=== PATIENT | male | born 1950 | race Caucasian/White ===

== ENCOUNTER 2022-05-17 13:15 | Outpatient (CLI) | payer MEDICARE, MEDICAID, SELFPAY ==
--- NOTE | ~2022-05-17 | XR_ITS ---
XR hip BI wo pelvis DATE: 05/17/2022 14:25 INDICATION: Bilateral hip pain TECHNIQUE: AP and lateral views of each hip COMPARISON: None FINDINGS: There is chronic deformity at the lesser trochanter of the right femur, very possibly relat ed to old fracture. No fracture or dislocation, avascular necrosis or bone destruction of either hip is evident. Hip join t spaces are symmetric and relatively preserved. The pubic symphysis and included portions of sacroil iac joints are intact IMPRESSION: No recent fracture or dislocation or bone destruction Reviewed, dictated and finalized at location A. LE CUTTER
--- NOTE | ~2022-05-17 | XR_ITS ---
XR chest 2V 05/17/2022 14:25 Indication: COPD. Procedure: PA and lateral views of the chest Comparison: No prior studies for comparison. Findings: Heart size normal. There is ectasia of the thoracic aorta. No focal air space disease, pulm onary edema, pleural effusion or suspected pneumothorax. No acute osseous abnormality. Impression: 1: No acute cardiopulmonary disease. Reviewed, dictated and finalized at location B. K RECEIVER Impression: 1: No acute cardiopulmonary disease.
--- NOTE | ~2022-05-17 | XR_ITS ---
XR lumbar spine 2-3V DATE: 05/17/2022 14:25 INDICATION: Bilateral hip pain TECHNIQUE: AP, lateral, coned lateral lumbosacral views COMPARISON: None FINDINGS: There is osteopenia. Mild dextroscoliosis of the thoracolumbar spine. There is severe degenerative changes apophyseal joints, with grade 1 anterolisthesis at L4-5 and appa rently L5-S1 as well. There is mild loss of height and anterior wedging of L2, likely due to old compression fracture. Moderately prominent degenerative disc disease at L1-2. Severe degenerative disc disease at L5-S1. Th ere is mild degenerative disc disease at the remaining lumbar interspaces. Lower thoracic and lumbar pedicles appear intact. The sacroiliac joints are intact. IMPRESSION: Multilevel degenerative disc disease, most severe at L5-S1 Prominent degenerative changes apophyseal joints with associated grade 1 anterolisthesis at L4-5 and L5-S1 Probable chronic mild anterior wedge compression fracture deformity of L2 Reviewed, dictated and finalized at location A. ING MANAGER IMPRESSION: Multilevel degenerative disc disease, most severe at L5-S1 Prominent degenerative changes apophyseal joints with associated grade 1 sophie listhesis at L4-5 and L5-S1 Probable chronic mild anterior wedge compression fracture deformity of L2
[2022-05-17 13:34] LABS: Basophils Absolute Auto 0.04 K/mm3 (0.00-0.10); Basophils Percent Auto 0.6 % (0.0-1.0); Eosinophils Percent Auto 1.4 % (1.0-6.0); Hematocrit 39.8 % (37.0-46.0); Hemoglobin 12.9 g/dL (12.4-15.3); Immature Granulocyte Absolute 0.02 K/mm3 (0.00-0.00); Immature Granulocyte Percent A 0.3 % (0.0-0.0); Lymphocytes Absolute Auto 1.75 K/mm3 (1.10-4.50); Lymphocytes Percent Auto 24.3 % (18.0-42.0); Mean Corpuscular HGB Conc 32.4 g/dL (32.0-36.0); Mean Corpuscular Hemoglobin 28.2 pg (27.0-31.0); Mean Corpuscular Volume 87.1 fL (78.0-102.0); Mean Platelet Volume 9.3 fl (8.7-11.0); Monocytes Absolute Auto 0.54 K/mm3 (0.10-0.90); Monocytes Percent Auto 7.5 % (2.0-11.0); Neutrophils Absolute Auto 4.8 K/mm3 (1.7-7.2); Neutrophils Percent Auto 65.9 % (50.0-70.0); Platelet Count Result 250 K/mm3 (150-420); Red Blood Count 4.57 M/mm3 (4.70-6.10); Red Cell Distribution Width 13.1 % (11.6-14.4); White Blood Count 7.2 K/mm3 (4.8-10.8)
[2022-05-17 14:06] LABS: Appearance Urine Clear (Clear); Bilirubin Urine Negative (Negative); Blood Urine Negative (Negative); Glucose Urine UA Negative (Negative); Ketones Urine Negative (Negative); Leukocyte Esterase Ur Negative (Negative); Nitrate Urine Negative (Negative); Protein Urine Negative (Negative); Urobilinogen Urine 0.2 mg/dL (0.2-1.0)
[2022-05-17 14:12] LABS: Add Urine Microscopic? NO; Color Urine Light Yellow (Yellow)
[2022-05-17 14:42] LABS: Alanine Aminotransferase 13 U/L (16-63); Albumin Level 3.2 g/dL (3.4-5.0); Alkaline Phosphatase 80 U/L (46-116); Anion Gap 3 mmol/L (8-16); Aspartate Amino Transferase 16 U/L (15-37); Bilirubin,Total 0.2 mg/dL (0.00-1.00); Blood Urea Nitrogen 14 mg/dL (7-18); CRP 1.2 mg/dL (0.0-0.9); Calcium 8.8 mg/dL (8.5-10.1); Carbon Dioxide 35 mmol/L (21-32); Chloride 95 mmol/L (98-108); Cholesterol 164 mg/dL (0-200); Estimated Glomerular Filt Rate > 60; Glucose 126 mg/dL (70-99); HDL Direct 45 mg/dL (40-60); LDL Cholesterol Calculated 96 mg/dL (<130); Osmolality Calculated 278 mOsm/kg (285-295); Potassium 4.5 mmol/L (3.5-5.1); Prostate Specific Antigen 1.6 ng/mL (< OR = 4.0); Sodium 133 mmol/L (136-145); Thyroid Stimulating Hormone 1.25 uIU/mL (0.36-3.74); Total Protein 6.8 g/dL (6.4-8.2); Triglycerides 114 mg/dL (0-150)
== END 2022-05-17 13:16 | disposition home or self-care (01) ==
LOC: CHSLAB 13:20
PROVIDERS: PCP Internal Medicine; Visit Provider Internal Medicine
DX: F20.9 Schizophrenia, unspecified (principal); I10 Essential (primary) hypertension; J44.9 Chronic obstructive pulmonary disease, unspecified; M25.552 Pain in left hip; M25.551 Pain in right hip; Z12.5 Encounter for screening for malignant neoplasm of prostate; Z00.00 Encounter for general adult medical examination without abnormal findings
CPT/HCPCS: 36415; 71046; 72100; 73521; 80053; 80061; 81003; 84153; 84443; 85025; 86140; G0103

== ENCOUNTER 2024-01-18 09:27 | Outpatient (CLI) | payer MEDICARE, MEDICAID, SELFPAY ==
--- NOTE | ~2024-01-18 | CT_ITS ---
EXAMINATION: CT lung screening DATE: 01/18/2024 11:04 INDICATION: History of nicotine dependence TECHNIQUE: Computed tomography (CT) of the chest was performed without intravenous contrast. The dose -length product was 75.78 mGy-cm. Automated exposure control and iterative reconstruction technique w ere employed. COMPARISON: None FINDINGS: Small right pleural effusion. Trace left pleural effusion. Upper abdomen is unremarkable. H eart size normal. No thoracic lymphadenopathy. There is mild atherosclerosis of the aorta and coronar y arteries. There is focal fissural thickening on the right. There is mild interlobular septal thicke edwin in the upper lobes, likely chronic. No endobronchial lesions. There is dependent atelectasis. Ca lcified granuloma left lung base. There is a 3 mm left lower lobe nodule. There is a 7 mm left upper lobe nodule, image 30. There is a healed sternal fracture. Moderate thoracic spondylosis. IMPRESSION: 1. Lung-RADS category 3: Probably benign. Further evaluation is recommended with noncontrast low-dose chest CT in 6 months. Reviewed, dictated and finalized at location B. IMPRESSION: 1. Lung-RADS category 3: Probably benign. Further evaluation is recommended wit h noncontrast low-dose chest CT in 6 months.
== END 2024-01-18 09:28 | disposition home or self-care (01) ==
PROVIDERS: PCP Internal Medicine; Visit Provider Internal Medicine
DX: Z12.2 Encounter for screening for malignant neoplasm of respiratory organs (principal); Z87.891 Personal history of nicotine dependence
CPT/HCPCS: 71271

== ENCOUNTER 2024-07-09 09:16 | Outpatient (CLI) | payer MEDICARE, MEDICAID, SELFPAY ==
--- NOTE | ~2024-07-09 | CT_ITS ---
CT Scan of the Chest without Contrast: Clinical Indication: Pulmonary nodule Technique: Contiguous sections were acquired throughout the chest without intravenous contrast. Dose reduction technique was used on this scan by utilizing automated exposure control and iterative recon struction technique. The dose-length product (DLP) was 163.13 mGy-cm. COMPARISON: 01/18/2024 Findings: There is no evidence of any significant mediastinal, hilar or axillary lymphadenopathy. The mediastin al soft tissues appear normal. Minimal left pleural fluid present. No right pleural effusion. No pericardial effusion. Left upper lobe pulmonary nodule is significantly increased in size, now measuring approximately 1.8 x 1.3 cm (axial image 31). Images through the upper abdomen reveal no abnormalities. Impression: Left upper lobe pulmonary nodule is significantly increased, now measuring 1.8 x 1.3 cm. This is susp icious for neoplasm until proven otherwise. Tissue sampling recommended to establish histologic diagn osis. Reviewed, dictated and finalized at location . CIATE PROFESSOR OF SURGERY Impression: Left upper lobe pulmonary nodule is significantly increased, now measuring 1.8 x 1.3 cm. This is suspicious for neoplasm until proven otherwise. Tissue sampli ng recommended to establish histologic diagnosis.
== END 2024-07-09 09:17 | disposition home or self-care (01) ==
LOC: CHSIMG 09:19
PROVIDERS: PCP Internal Medicine; Visit Provider Internal Medicine
DX: R91.1 Solitary pulmonary nodule (principal)
CPT/HCPCS: 71250

== ENCOUNTER 2024-09-11 11:45 | Outpatient (CLI) | payer MEDICARE, MEDICAID, SELFPAY ==
--- NOTE | ~2024-09-11 | PE_ITS ---
EXAMINATION: PET skull to mid thigh DATE: 09/11/2024 14:09 INDICATION: Solitary pulmonary nodule TECHNIQUE: Blood glucose level was 94 mg/dL. 9.325 mCi of 18-fluorodeoxyglucose (18-FDG) was administ ered i.v. Low dose computed tomography (CT) images were acquired from the base of the brain to the pr oximal thighs for attenuation correction and anatomic localization. Positron emission tomography (PET ) images were acquired in the same distribution beginning 56 minutes after injection. Images includin g fused PET/CT images were reconstructed in axial, coronal, and sagittal planes. Automated exposure c ontrol technique was employed. The dose-length product was 819.84mGy-cm. COMPARISON: 01/18/2024 FINDINGS: Head/neck: The There is symmetric increased activity in the oral cavity, palatine tonsils, laryngeal muscles and ocular muscles without CT correlate, likely physiologic. There is additional asymmetric but still li annette physiologic left-sided predominant muscular activity in the bilateral posterior paraspinal muscu lature. No pathologically enlarged cervical lymphadenopathy or suspicious foci of increased FDG uptak e in the visualized head or neck. Chest: Interval increase in size of a now 1.5 cm mildly FDG avid nodule at the posterior segment of the left upper lobe with maximal SUV of 5.4. Small calcified left lower lobe nodule consistent with old granu lomatous disease. No other suspicious noncalcified or FDG avid pulmonary nodules. No pulmonary edema or pleural effusion. Heart size is normal. Atherosclerotic coronary artery calcification. No pericard ial effusion. Thoracic aorta is normal in caliber. No pathologically enlarged or FDG avid thoracic ly mphadenopathy. Abdomen/pelvis/proximal thighs: Physiologic renal accumulation and excretion of FDG activity in the kidneys, bladder and along portio ns of ureters. Bilateral low-attenuation renal cysts the larger on the left with corresponding photop enic defect measuring 2.8 cm. Normal degree and heterogenous pattern of increased uptake throughout t he liver without radiologic correlate or dominant FDG avid lesion. The gallbladder, pancreas, spleen and bilateral adrenal glands are normal. Mild uptake scattered throughout the bowels without radiolog ic correlate, also likely physiologic. No other abnormal foci of increased FDG uptake or pathological ly enlarged lymphadenopathy in the abdomen, pelvis or proximal thighs. Musculoskeletal: Severe spondylosis with Modic type III cirrhotic endplate changes at a few levels in the lumbar spine . L5 spondylolysis with bilateral pars interarticularis defects and grade 1 anterolisthesis on S1. No suspicious lytic, blastic or abnormally FDG avid bone lesions. IMPRESSION: 1. Increased FDG uptake associated with a 1.5 cm nodule in the left upper lobe which is concerning fo r malignancy. CT-guided percutaneous biopsy would be recommended. Reviewed, dictated and finalized at location A. IMPRESSION: 1. Increased FDG uptake associated with a 1.5 cm nodule in the left upper lobe which is concerning for malignancy. CT-guided percutaneous biopsy would be janice mmended.
[2024-09-11 12:39] LABS: Glucose Point of Care 94 mg/dl (65-105)
--- OUTSIDE RECORDS SUMMARY | 2024-09-11 13:22 | XMS_ITS | Continuity of Care Document ---
Author Organization [facility] Address [address] [place] [address] Phone Care Team Providers Care Mathematical Engineering Technician Name Role Phone Cristiano Callejas MD Unavailable Unavailable Allergies, Adverse Reactions, Alerts Substance Reaction Status Criticality No Known Allergies Active No Inform ation Medications Medication Instructions Dosage Effective Dates (start - stop) Status Comments triamterene 37.5 mg-hydrochlorothiazi de 25 mg tablet take 1 tab po at hs - Active Ventolin HFA 90 mcg/actuation aerosol inhaler inhale 2 puff by inhalation route every 4 - 6 hours as needed 180 MCG - Active divalproex ER 500 mg tablet,extended release 24 hr 4 tabs (2000mg) po at hs - Active MILK OF MAGNESIA (unknown strength) take 30 milliliter by oral route every day as needed, followed by a full glass (8 oz) of liquid Not Available - Active Miralax 17 gram/dose oral powder take 17gm (pwd) po prn - Active haloperidol 10 mg tablet take 1 tablet by oral route 3 times every day 10 MG - Active olanzapine 20 mg tablet take 1 tab po at hs - Active olanzapine 10 mg tablet take 1 tab po in am - Active sertraline 100 mg tablet take 1 tab po bid - Active haloperidol decanoate 100 mg/mL intramuscular solution 200mg. give (soln) IM q14 days - Active famotidine 40 mg tablet 1/2 tab (20mg) po daily - Active Wellbutrin SR 100 mg tablet, 12 hr sustained-release take 1 tablet by oral route every day 100 MG - Active levothyroxine 25 mcg tablet take 1 tablet by oral route every day 25 MCG - Active Procedures Procedure Date DOMICIL/R-HOME VISIT EST PAT Advance Directives Directive Yes / No Effective Date File Name No Information Encounters Encounter Description Practice Location Reason(s) For Visit Diagnoses Date Provider Providers Copied on Encounter DOMICIL/R-HO ME VISIT EST JANNETTE [facility], [address] [place] [address], [facility], tel: [phone] [facility] HPI (chief complaint) Essential (primary) hypertensionGastro- esophageal reflux disease without esophagitisHypothyr oidism, unspecifiedParanoid schizophrenia 2 Júnior Quinonez. [address] [place] [address], [facility], . tel: [phone] [facility], [address] [place] [address], [facility], tel: [phone] [place] [address] No Information 2 Júnior Quinonez. [address] [place] [address], Formerly [facility], . tel: [phone] [facility], [address] [place] [address], [facility], tel: [phone] [place] [address] No Information 2 Júnior Quinonez. [address] [place] [address], Formerly [facility], [place]. tel: [phone] [facility], [address] [place] [address], [facility], tel: [phone] [place] [address] 6 Month [facility] (chief complaint) Essential (primary) hypertensionGastro- esophageal reflux disease without esophagitisHypothyr oidism, unspecifiedParanoid schizophrenia 2 Júnior Quinonez. [address] [place] [address], [facility]ly [facility], [place]. tel: [phone] [facility], [address] [place] [address], [facility], tel: [phone] [place] [address] No Information 1 Júnior Quinonez. [address] [place] [address], [facility]ly [facility], [place]. tel: [phone] Family History Family Member Type Diagnosis Age At Onset No Information Immunizations Vaccine Date Status Comments Influenza injectable quad admin istered Source: Other Registry SARS-COV-2 (COVID-19) vaccin e, mRNA, spike protein, LNP, preservative free, 100 mcg/0.5mL dose administered Source: Other R egistry SARS-COV-2 (COVID-19) vaccin e, mRNA, spike protein, LNP, preservative free, 30 mcg/0.3mL dose administered Source: Other Re gistry Payers Payer name Insurance type Covered alliance party ID Authoriza tion(s) No Information Social History Type Description Quantity Date Captured Comments Sex Male Smoking Status No Information Vital Signs Date / Time: Height Weight BMI Pulse Rate Blood Pressure Temperature Respiratory Rate Body Surface Area Head Circumference Head Circ. Percentile Wt./Shahbaz. Percentile BMI percentile Pulse Ox Inhaled Ox 12:10 PM 66.224 kg (146.00 lbs) 80 /min 124/76 mm[Hg] 98.20 F 18 /min Chief Complaint And Reason For Visit From encounter dated '01/14/2022 11:11'. HPI (chief complaint). Description: No new concerns or complaints from patient or staff.Eating and sleeping well.Medication list reviewed Reason For Referral Reason For Referral No Information Plan Of Treatment Date Type Action Status Future Order: Lab Order CMP ([id number]), Se nt on: Sent Future Order: Lab Order TSH REFL EX FREE T4 ([id number]), Sent on: Sent Future Order: Lab Order VITAMIN D (25) ([id number]), Sent on: Sent Future Order: Lab Order CBC W/ D iff ([id number]), Sent on: Sent History Of Present Illness Encounter Date Complaint History Of Prese nt Illness HPI No new concerns or complaints from patient or staff.Eating and sleeping well.Medication list reviewed 6 Month [facility] Pt. is doing well.No new concerns or complaints by the patient or staffEating well. Sleeping well. Functional Status Date Functional Assessmen t No Information Instructions Date Instruction Additional Infor dasia Continue current med ications and treatment plan Related to Essential (primary) hypertension Continue current med icationsLabs: TSH, CMP, Vit D, CBCFollow up 6 months, sooner as neededFollow up with mental health services as scheduled Related to Essential (primary) hypertension Assessments Type Assessment Date assessment Essential (primary) hypertension assessment Gastro-esophageal reflux disease without esophagitis assessment Hypothyroidism, unspecified assessment Paranoid schizophrenia 22 Patient Care Teams Name Effective Dates (start - stop) Status Members No Information
== END 2024-09-11 11:46 | disposition home or self-care (01) ==
PROVIDERS: PCP Internal Medicine; Visit Provider Internal Medicine Critical Care Medicine
DX: R91.1 Solitary pulmonary nodule (principal); Z72.0 Tobacco use
CPT/HCPCS: 78815; A9552

== ENCOUNTER 2024-09-12 09:11 | Outpatient (CLI) | payer MEDICARE, MEDICAID, SELFPAY ==
[2024-09-12] VITALS (9 sets, daily range): PULSE 91–104; O2SAT 91–96
--- OUTSIDE RECORDS SUMMARY | 2024-09-12 10:00 | XMS_ITS | Continuity of Care Document ---
Author Organization [facility] Address [address] [place] [address] Phone Care Team Providers Care Painter Interior Finish Name Role Phone Cristiano Callejas MD Unavailable [...] hours as needed 180 MCG - Active levothyroxine 25 mcg tablet take 1 tablet by oral route every day 25 MCG - Active Wellbutrin SR 100 mg tablet, 12 hr sustained-release take 1 tablet by oral route every day 100 MG - Active famotidine 40 mg tablet 1/2 tab (20mg) po daily - Active haloperidol decanoate 100 mg/mL intramuscular solution 200mg. give (soln) IM q14 days - Active sertraline 100 mg tablet take 1 tab po bid - Active olanzapine 10 mg tablet take 1 tab po in am - Active olanzapine 20 mg tablet take 1 tab po at hs - Active haloperidol 10 mg tablet take 1 tablet by oral route 3 times every day 10 MG - Active Miralax 17 gram/dose oral powder take 17gm (pwd) po prn - Active MILK OF MAGNESIA (unknown strength) take 30 milliliter by oral route every day as needed, followed by a full glass (8 oz) of liquid Not Available - Active divalproex ER 500 mg tablet,extended release 24 hr 4 tabs (2000mg) po at hs - Active Procedures Procedure Date DOMICIL/R-HOME VISIT EST PAT Advance Directives Directive Yes / No Effective Date File Name No Information Encounters Encounter Description Practice Location Reason(s) For Visit Diagnoses Date Provider Providers Copied on Encounter DOMICIL/R-HO ME VISIT EST JANNETTE [facility], [address] [place] [address], [facility], tel: [phone] [facility] HPI (chief complaint) Essential (primary) hypertensionGastro- esophageal reflux disease without esophagitisHypothyr oidism, unspecifiedParanoid schizophrenia 2 Júnior Quinonez. [address] [place] [address], [facility], . tel: [phone] [facility], [address] [place] [address], [facility], tel: [phone] [place] [address] No Information 2 Júnior Quinonez. [address] [place] [address], [facility], . tel: [phone] [facility], [address] [place] [address], [facility], tel: [phone] [place] [address] No Information 2 Júnior Quinonez. [address] [place] [address], [facility], [place]. tel: [phone] [facility], [address] [place] [address], [facility], tel: [phone] [place] [address] 6 Month Follow Up at [facility] (chief complaint) Essential (primary) hypertensionGastro- esophageal reflux disease without esophagitisHypothyr oidism, unspecifiedParanoid schizophrenia 2 Júnior Quinonez. [address] [place] [address], [facility], [place]. tel: [phone] [facility], [address] [place] [address], [facility], tel: [phone] [place] [address] No Information 1 Júnior Quinonez. [address] [place] [address], [facility], [place]. tel: [phone] Family History Family Member Type Diagnosis Age [...] gistry Payers Payer name Insurance type Covered republican ID Authoriza tion(s) No Information Social History [...] Action Status Future Order: Lab Order CMP ([id number]), Se nt on: Sent Future Order: Lab Order TSH REFL EX FREE T4 ([id number]), Sent on: Sent Future Order: Lab Order VITAMIN D (25) ([id number]), Sent on: Sent Future Order: Lab Order CBC W/ D iff ([id number]), Sent on: Sent History Of Present Illness Encounter Date Complaint History Of Prese nt Illness HPI No new concerns or complaints from patient or staff.Eating and sleeping well.Medication list reviewed 6 Month [facility] at [facility] Pt. is doing well.No new [...]
--- NOTE | 2024-09-12 10:36 | SIXMINWLK ---
Six Minute Walk Test PFT: Six Minute Walk Start: 09/12/24 10:23 Freq: Status: Active Protocol: RPE Activity Type Activity Date Activity User E-sign Co-sign Detail Recorded Client Recorded Date Recorded By Document 09/12/24 09:19 RES [id number] 09/12/24 10:35 RES Document 09/12/24 09:20 RES [id number] 09/12/24 10:35 RES Document 09/12/24 09:21 RES [id number] 09/12/24 10:35 RES Document 09/12/24 09:22 RES [id number] 09/12/24 10:35 RES Document 09/12/24 09:23 RES [id number] 09/12/24 10:35 RES Document 09/12/24 09:24 RES [id number] 09/12/24 10:35 RES Document 09/12/24 09:25 RES [id number] 09/12/24 10:35 RES Document 09/12/24 09:26 RES [id number] 09/12/24 10:35 RES Document 09/12/24 09:27 RES [id number] 09/12/24 10:35 RES 09/12/24 09/12/24 09/12/24 09:19 09:20 09:21 Six Minute Walk Gender M M M Age [age] Race White White White Test Phase Resting Exercise Exercise Oxygen Delivery Room Air Room Air Room Air Fraction of Inspired Oxygen (%) 21 21 21 Pulse Oximetry (90-100 %) 91 93 93 Pulse Rate (60-100 beats/min) 91 98 100 Activity Tolerance Good Good Good Rating of Perceived Dyspnea (PD) +1 Mild, +1 Mild, +1 Mild, Noticeable to Noticeable to Noticeable to the Participant the Participant the Participant but Not to an but Not to an but Not to an Observer Observer Observer Rate of Perceived Exertion (1) Very Light Activity Number of Complete Laps (1 Lap = 100 Feet) Total Distance Walked (Feet) Total Distance Walked (Meters) 09/12/24 09/12/24 09/12/24 09:22 09:23 09:24 Six Minute Walk Gender M M M Age [age] Race White White White Test Phase Exercise Exercise Exercise Oxygen Delivery Room Air Room Air Room Air Fraction of Inspired Oxygen (%) 21 21 21 Pulse Oximetry (90-100 %) 93 93 93 Pulse Rate (60-100 beats/min) 102 H 100 102 H Activity Tolerance Good Good Good Rating of Perceived Dyspnea (PD) +1 Mild, +1 Mild, +1 Mild, Noticeable to Noticeable to Noticeable to the Participant the Participant the Participant but Not to an but Not to an but Not to an Observer Observer Observer Rate of Perceived Exertion Number of Complete Laps (1 Lap = 100 Feet) Total Distance Walked (Feet) Total Distance Walked (Meters) 09/12/24 09/12/24 09/12/24 09:25 09:26 09:27 Six Minute Walk Gender M M M Age [age] Race White White White Test Phase Exercise Exercise Resting Oxygen Delivery Room Air Room Air Room Air Fraction of Inspired Oxygen (%) 21 21 21 Pulse Oximetry (90-100 %) 96 93 93 Pulse Rate (60-100 beats/min) 103 H 104 H 100 Activity Tolerance Good Good Good Rating of Perceived Dyspnea (PD) +1 Mild, +1 Mild, +1 Mild, Noticeable to Noticeable to Noticeable to the Participant the Participant the Participant but Not to an but Not to an but Not to an Observer Observer Observer Rate of Perceived Exertion Number of Complete Laps (1 Lap = 100 7 Feet) Total Distance Walked (Feet) 0 700 Total Distance Walked (Meters) 0 213.34
== END 2024-09-12 09:12 | disposition home or self-care (01) ==
LOC: CHSCARD 09:12
PROVIDERS: PCP Internal Medicine; Visit Provider Internal Medicine Critical Care Medicine
DX: J44.9 Chronic obstructive pulmonary disease, unspecified (principal)
CPT/HCPCS: 94618

== ENCOUNTER 2024-10-11 08:45 | Outpatient (CLI) | payer MEDICARE, MEDICAID, SELFPAY ==
[2024-09-27 10:51] VITALS: BMI 28.0
--- NOTE | 2024-09-27 10:51 | PC.NURSE ---
Pre Radiology instructions Report to the outpatient [facility] on date __10/11/24___ at time __0900am for procedure Time: _1100am___ YOU MAY BE MONITORED AT HOSPITAL FOR UP TO 4 HOURS AFTER YOUR PROCEDURE. A visitor will be allowed to accompany the patient into the hospital. You and your visitor will be asked to self-screen and do not enter if you have any COVID symptoms. A mask is OPTIONAL within the hospital. Patients are to have no food or drink 6 hours prior to procedure time Driving will be restricted after the procedure, you must have a person to drive you home. Labs will be drawn in preop area and once reviewed, you will be taken to radiology area for procedure. When the procedure is completed, you will be taken to outpatient where you will be monitored for several hours. You may have one visitor in this area. Other than holding anti-coagulants, patient may take other medication(s) as scheduled. Prior to your appointment date patients are instructed to hold anti-coagulants after discussing with ordering provider to stop. If unable to discontinue anti-coagulants please notify radiologist. ? No aspirin or warfarin (Coumadin) for 7 days prior to the procedure. ? No clopidogrel (Plavix), ticagrelor (Brilinta), prasugrel (Effient) or dabigatran (Pradaxa) for 5 days prior to the procedure. ? No rivaroxaban (Xarelto), apixaban (Eliquis), dipyridamole (Aggrenox or Persantine) or cilostazol (Pletal) for 2 days prior to the procedure. Medications to discontinue per physician: __None Date to take last dose: ____None Please leave all valuables, including medications, at home the day of procedure. The hospital will not accept responsibility for valuables. Wear comfortable, loose fitting clothing.? Follow any additional instructions given to you from ordering provider. Faxed this note to September at [phone]. Telephone instructions given to _September at Facility_ [phone] pse asked if any additional questions and then verbalized understanding. Patient advised to call scheduling provider office or registration scheduling [phone] if any additional questions.
[2024-10-11] VITALS (9 sets, daily range): BP systolic 106–174; BP diastolic 64–95; PULSE 68–81; RESP 16–20; TEMP 36.7; O2SAT 93–99; BMI 28.0
--- NOTE | ~2024-10-11 | XR_ITS ---
EXAMINATION: XR chest 1V portable DATE: 10/11/2024 15:20 INDICATION: Status post percutaneous left lung biopsy TECHNIQUE: frontal view of the chest was obtained. COMPARISON: Chest radiograph dated 10/11/2024 at 1:18 PM FINDINGS: There is a very small left apical pneumothorax. Subtle nodular opacity projecting lateral to the aort ic arch corresponding to the biopsied left upper lobe nodule. No pleural effusion or right-sided pneu mothorax. Heart size is normal. Suggestion of a minimal amount of soft tissue gas in the left infrac lavicular region. IMPRESSION: 1. Very small left apical pneumothorax post biopsy of a left upper lobe nodule which is concerning fo r primary bronchogenic carcinoma. Reviewed, dictated and finalized at location A. IMPRESSION: 1. Very small left apical pneumothorax post biopsy of a left upper lobe nodule which is concerning for primary bronchogenic carcinoma.
--- NOTE | ~2024-10-11 | XR_ITS ---
Portable chest x-ray Comparison: 05/17/2022 Clinical History: Postbiopsy Findings: Subtle 12 mm left upper lobe nodule probably present. No pneumothorax postbiopsy. No pleur al effusion. Cardiomediastinal silhouette is stable. Bones and soft tissues are unremarkable. Impression: No pneumothorax. 12 mm subtle left upper lobe nodule. Correlate with biopsy results. Reviewed, dictated and finalized at [facility]. Impression: No pneumothorax. 12 mm subtle left upper lobe nodule. Correlate with biopsy results.
--- NOTE | ~2024-10-11 | CT_ITS ---
EXAMINATION: CT biopsy lung w/imaging DATE: 10/11/2024 12:19 INDICATION: TECHNIQUE: The procedure including the risks and benefits was discussed with the patient. Risks discu ssed included infection, approximately 1/20 risk of symptomatic hemorrhage beyond mild hemoptysis, ap proximately 1/3 risk of pneumothorax, and approximately 1/5 risk of pneumothorax severe enough to war rant chest tube placement. The patient understood the risks and agreed to proceed. The patient was pl aced supine. The skin overlying the anterior left upper chest was prepped and draped in sterile fash ion. Anesthetic was administered with 1% lidocaine subcutaneously. A 19 gauge outer needle was adva nced under CT guidance to the lesion of interest. A 20 gauge core biopsy needle was then used to obta in 3 core biopsy specimens. The needle was removed and the entry site was cleaned and dressed. There were no immediate complications. The dose-length product was 193.85 mGy-cm. FINDINGS: CT images demonstrate the outer needle tip adjacent to a 1.5 x 1.0 cm mass in the posterior segment of the left upper lobe. IMPRESSION: 1. Successful CT-guided biopsy of a 1.5 cm left upper lobe nodule. Reviewed, dictated and finalized at location A.
--- NOTE | ~2024-10-11 | XR_ITS ---
EXAMINATION: XR chest 1V portable DATE: 10/11/2024 13:23 INDICATION: One hour post percutaneous left lung biopsy TECHNIQUE: frontal view of the chest was obtained. COMPARISON: Chest radiograph dated 10/11/2024 FINDINGS: Tiny left apical pneumothorax. Opacities in the lateral left upper lung zone corresponding to small a mount of pulmonary hemorrhage along the biopsy tract is essentially resolved. The biopsied nodule pro jects subtly more medially near the aortic arch. No other airspace opacities, pleural effusion or rig ht-sided pneumothorax. The cardiomediastinal silhouette is normal. IMPRESSION: 1. Tiny left apical pneumothorax and interval resolution of small amount of pulmonary hemorrhage valeria g the biopsy tract. 2. Subtle left upper lobe nodule concerning for malignancy. Reviewed, dictated and finalized at location A. IMPRESSION: 1. Tiny left apical pneumothorax and interval resolution of small amount of pul monary hemorrhage along the biopsy tract. 2. Subtle left upper lobe nodule concerning for malignancy.
--- OUTSIDE RECORDS SUMMARY | 2024-10-11 09:05 | XMS_ITS | Continuity of Care Document ---
Author Organization [facility] Address [address] [place] [address] Phone Care Team Providers Care Decorator Consultant Name Role Phone Cristiano Callejas MD Unavailable [...] hours as needed 180 MCG - Active MILK OF MAGNESIA (unknown strength) take 30 milliliter by oral route every day as needed, followed by a full glass (8 oz) of liquid Not Available - Active divalproex ER 500 mg tablet,extended release 24 hr 4 tabs (2000mg) po at hs - Active Miralax 17 gram/dose oral powder [...] on Encounter DOMICIL/R-HO ME VISIT EST JANNETTE [facility], [address] [place] [address], [facility], tel: [phone] [facility] HPI (chief complaint) Essential (primary) hypertensionGastro- esophageal reflux disease without esophagitisHypothyr oidism, unspecifiedParanoid schizophrenia 2 Júnior Quinonez. [address] [place] [address], [facility], . tel: [phone] [facility], [address] [place] [address], [facility], tel: [phone] [place] [address] No Information 2 Júnior Quinonez. [address] [place] [address], [facility], . tel: [phone] [facility], [address] [place] [address], [facility], tel: [phone] [place] [address] No Information 2 Júnior Quinonez. [address] [place] [address], [facility], [place]. tel: [phone] [facility], [address] [place] [address], [facility], tel: [phone] [place] [address] 6 Month Follow Up at [facility] (chief complaint) Essential (primary) hypertensionGastro- esophageal reflux disease without esophagitisHypothyr oidism, unspecifiedParanoid schizophrenia 2 Júnior Quinonez. [address] [place] [address], [facility], [place]. tel: [phone] [facility], [address] [place] [address], [facility], tel: [phone] [place] [address] No Information 1 Júnior Quinonez. [address] [place] [address], [facility], [place]. tel: [phone] Family History Family Member Type Diagnosis Age [...] Action Status Future Order: Lab Order CMP ([id number]), Se nt on: Sent Future Order: Lab Order TSH REFL EX FREE T4 ([id number]), Sent on: Sent Future Order: Lab Order VITAMIN D (25) ([id number]), Sent on: Sent Future Order: Lab Order CBC W/ D iff ([id number]), Sent on: Sent History Of Present Illness Encounter Date Complaint History Of Prese nt Illness HPI No new concerns or complaints from patient or staff.Eating and sleeping well.Medication list reviewed 6 Month Follow Up at [facility] Pt. is doing well.No new [...]
[2024-10-11 09:33] LABS: Mean Platelet Volume 9.8 fl (7.4-10.4); Platelet Count Result 280 k/mm3 (150-375)
[2024-10-11 09:45] LABS: INR 0.9; Prothrombin Time 12.3 Seconds (11.1-14.7)
--- NOTE | 2024-10-11 15:56 | SUR.PHASEII ---
1525 - dr. faria at bedside talking with pt and pt's career based intervention coordinator.
== END 2024-10-11 15:40 | disposition home or self-care (01) ==
PROVIDERS: PCP Internal Medicine; Referring Provider Internal Medicine Critical Care Medicine; Visit Provider Radiology Diagnostic Radiology
PROC: BB24ZZZ Computerized Tomography (CT Scan) of Bilateral Lungs (ICD-10-PCS; CPT 32408; principal; 2024-10-11 11:00)
DX: R91.1 Solitary pulmonary nodule (principal)
CPT/HCPCS: 32408; 36415; 71045; 85049; 85610; 88305

== ENCOUNTER 2025-06-13 12:51 | Outpatient (CLI) | payer MEDICARE, MEDICAID, SELFPAY ==
--- NOTE | ~2025-06-13 | CT_ITS ---
EXAMINATION: CT diagnostic chest wo con DATE: 06/13/2025 13:16 INDICATION: R91.1 - Solitary pulmonary nodule TECHNIQUE: Computed tomography (CT) of the chest was performed without intravenous contrast. Additional 3D reconstructions utilizing coronal maximum intensity projection (MIP) were performed. Automated exposure control and iterative reconstruction technique were employed. The dose-length product was 19 8.42 mGy-cm. COMPARISON: None FINDINGS: Mild emphysema. Interval decrease in size of the previous the biopsied left upper lobe nodule which on the coronal MIPS images has decreased from 19 x 13 mm to currently measuring 10 x 5 mm consistent with resolving biopsy demonstrated focal interstitial pneumonitis with fibrosis. And small calcified nodules in the left lower and right upper lobes along with calcified mediastinal and bilateral hilar lymph nodes consistent with old granulomatous disease. Unchanged 2 mm noncalcified nodule in the right middle lobe. No new or enlarging pulmonary nodules identified. No pneumonia, pulmonary edema or pleural effusion. Heart size is normal. Atherosclerotic coronary artery calcifications. No pericardial effusion. Thoracic aorta is normal in caliber. No pathologically enlarged abdominal or pelvic lymphadenopathy. Mild upper thoracic levocurvature. Severe thoracic, upper lumbar and lower cervical spondylosis. IMPRESSION: 1. Interval decrease in size of the previously biopsied left upper lobe nodule consistent with resolving biopsy demonstrated focal interstitial pneumonitis with fibrosis. No new or enlarging pulmonary nodules. Reviewed, dictated and finalized at location A. 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 Interval decrease in size of the previously biopsied left upper lobe nodule consistent with resolving biopsy demonstrated focal interstitial pneumonitis wi th fibrosis. No new or enlarging pulmonary nodules.
--- OUTSIDE RECORDS SUMMARY | 2025-06-13 13:41 | XMS_ITS | Patient Health Record ---
Author Organization [facility] [employer] Address [address] [place] [address] Care Team Providers Care Event Specialist Food Demonstrator Name Role Phone Tania Irizarry Unavailable [phone] Reason For Referral No Information Medications Medication SIG (Take, Route, Frequency, Duration) Notes Start Date End Date Status Haloperidol 10 MG Tablet Oral 09/17/2022 Active Triamterene-HCTZ 37.5-25 MG Tablet Oral 09/17/2022 Active Ventolin HFA 108 (90 Base) MCG/ACT Aerosol Solution Inhalation 09/17/2022 Act montrell Divalproex Sodium ER 500 MG Tablet Extended Release 24 Hour Oral 09/17/2022 Active ProAir HFA 108 (90 Base) MCG/ACT Aerosol Solution Inhalation 09/17/2022 Act montrell Haloperidol Decanoate 100 mg/mL Solution Intramuscular 09/17/2022 Active Famotidine 20 MG Tablet Oral 09/17/2022 Active Levothyroxine Sodium 25 MCG Tablet Oral 09/17/2022 Active buPROPion HCl ER (SR) 100 MG Tablet Extended Release 12 Hour Oral 09/17/2022 Active Famotidine 40 MG Tablet Oral 09/17/2022 Active Sertraline HCl 100 MG Tablet Oral 09/17/2022 Active Cefuroxime Axetil 500 MG Tablet Oral 09/17/2022 Active OLANZapine 20 MG Tablet Oral 09/17/2022 Active buPROPion HCl 100 MG Tablet Oral 09/17/2022 Active Social History Social History Additional Details Category Social Info Options Details Migrated Social History Migrated Social History Tobacco Years: Current every day smoker 07/23/2022 Plan Of Treatment No Information Insurance Providers Payer Name Payer Address Payer Phone Subscriber Number Group Number Insured Name Patient Relationship to Insured Coverage Start Date Coverage End Date Medicare-I l Medicare [address] [place] [phone] [id number] [place] Self - patient is the insured Medicaid-[place] l Medicaid [address] [address] [place] [address] [id number] [employer] [place] Self - patient is the insured
== END 2025-06-13 12:52 | disposition home or self-care (01) ==
LOC: CHSIMG 12:53
PROVIDERS: PCP Internal Medicine; Visit Provider Internal Medicine Critical Care Medicine
DX: R91.1 Solitary pulmonary nodule (principal)
CPT/HCPCS: 71250